=== PATIENT | male | born 1950 | race Caucasian/White ===

== ENCOUNTER 2019-07-10 13:04 | Outpatient (REF) | payer MEDICARE, SELFPAY ==
[2019-07-10 21:08] LABS: Calculated LDL 94 mg/dL; Cholesterol 184 mg/dL (<200); HDL Cholesterol 54 mg/dL (40-60); Triglyceride 183 mg/dL (<150)
== END 2019-07-10 13:24 ==
LOC: NCHCN 13:04
PROVIDERS: PCP Internal Medicine; Visit Provider Internal Medicine
DX: E78.00 Pure hypercholesterolemia, unspecified (principal)
CPT/HCPCS: 80061

== ENCOUNTER 2019-07-17 22:33 | Outpatient (REF) | payer MEDICARE, SELFPAY ==
[2019-07-19 12:00] LABS: IgA 222 mg/dL (85-499); Tissue Transglutaminase IgA <1.2 U/mL (<4.0)
== END 2019-07-17 22:53 ==
LOC: LBN 22:33
PROVIDERS: PCP Internal Medicine; Visit Provider Internal Medicine
DX: K59.00 Constipation, unspecified (principal); R39.9 Unspecified symptoms and signs involving the genitourinary system; E78.5 Hyperlipidemia, unspecified
CPT/HCPCS: 82784; 83516

== ENCOUNTER 2020-01-04 15:14 | Outpatient (REF) | payer MEDICARE, SELFPAY ==
[2020-01-04 21:27] LABS: BUN 17 mg/dL (7-18); CREATININE 1.07 mg/dL (0.70-1.30)
== END 2020-01-04 15:34 ==
LOC: LBN 15:14
PROVIDERS: PCP Internal Medicine; Visit Provider Orthopaedic Surgery Orthopaedic Surgery of the Spine
DX: M48.062 Spinal stenosis, lumbar region with neurogenic claudication (principal)
CPT/HCPCS: 84520; 82565

== ENCOUNTER 2020-01-10 11:02 | Outpatient (REF) | payer MEDICARE, SELFPAY ==
[2020-01-10 21:54] LABS: Calculated LDL 110 mg/dL (<100); Cholesterol 192 mg/dL (<200); HDL Cholesterol 52 mg/dL (40-60); Triglyceride 154 mg/dL (<150)
== END 2020-01-10 11:22 ==
LOC: NCHCN 11:02
PROVIDERS: PCP Internal Medicine; Visit Provider Internal Medicine
DX: E78.5 Hyperlipidemia, unspecified (principal)
CPT/HCPCS: 80061

== ENCOUNTER 2020-10-21 15:14 | Outpatient (REF) | payer MEDICARE, SELFPAY ==
[2020-10-21 13:09] LABS: Abs Immature Grans 0.02 10^3/uL (0.0-0.06); Absolute Basophil Count 0.03 10^3/uL (0.0-0.2); Absolute Eosinophil Count 0.07 10^3/uL (0.0-0.7); Absolute Lymphocyte Count 1.37 10^3/uL (1.2-3.4); Absolute Monocyte Count 0.72 10^3/uL (0.1-0.8); Absolute Neutrophil Count 3.08 10^3/uL (1.2-6.7); Basophils % 0.6; Eosinophils % 1.3; HCT 47.6 % (40.0-50.0); HGB 16.3 g/dL (13.5-17.5); Immature Grans % 0.4; Lymphocytes % 25.9; MCH 31.8 pg (27.0-33.0); MCHC 34.2 % (32.0-36.0); MCV 92.8 fL (80-95); MPV 9.7 fL (8.0-11.0); Monocytes % 13.6; Neutrophils % 58.2; Nucleated RBC 0 %; Platelet Count 231 10^3/uL (130-400); RBC 5.13 10^6/uL (4.36-5.78); RDW 12.1 % (11.8-14.1); RDW-SD 41.6 fL; WBC 5.29 10^3/uL (4.4-10.8)
== END 2020-10-21 15:15 | disposition home or self-care (01) ==
LOC: NCHCN 15:14
PROVIDERS: PCP Internal Medicine; Visit Provider Internal Medicine
DX: Z01.818 Encounter for other preprocedural examination (principal)
CPT/HCPCS: 85025

== ENCOUNTER 2020-11-04 13:21 | Outpatient (REF) | payer MEDICARE, SELFPAY ==
[2020-11-04 22:36] LABS: ALT 44 U/L (16-63); AST 32 U/L (15-37); Alkaline Phosphatase 92 U/L (46-116); Anion Gap 11.2 mmol/L (3-11); Bilirubin, Total 1.2 mg/dL (0.2-1.0); CO2 26.8 mmol/L (21.0-32.0); CREATININE 1.1 mg/dL (0.70-1.30); Calculated LDL 96 mg/dL (<100); Chloride 106 mmol/L (98-107); Cholesterol 188 mg/dL (<200); Glucose 92 mg/dL (74-106); HDL Cholesterol 61 mg/dL (40-60); Potassium 4.4 mmol/L (3.5-5.1); Sodium 144 mmol/L (136-145); Triglyceride 159 mg/dL (<150)
[2020-11-04 22:53] LABS: BUN 23 mg/dL (7-18); Total Protein 6.7 g/dL (6.4-8.2)
== END 2020-11-04 13:22 | disposition home or self-care (01) ==
LOC: NCHCN 13:21
PROVIDERS: PCP Internal Medicine; Visit Provider Internal Medicine
DX: E78.5 Hyperlipidemia, unspecified (principal)
CPT/HCPCS: 80053; 80061

== ENCOUNTER 2022-06-03 15:15 | Outpatient (REF) | payer MEDICARE, OTHER, SELFPAY ==
[2022-06-03 22:54] LABS: PSA, Screening 0.9 ng/mL (<=6.5)
[2022-06-07 11:12] LABS: Testosterone, Free 14.9 ng/dL (3.28-12.2); Testosterone, Total 415 ng/dL (240-950)
== END 2022-06-03 15:16 | disposition home or self-care (01) ==
LOC: NCHCN 15:15
PROVIDERS: PCP Internal Medicine; Visit Provider Internal Medicine
DX: N52.9 Male erectile dysfunction, unspecified (principal); R39.89 Other symptoms and signs involving the genitourinary system; Z12.5 Encounter for screening for malignant neoplasm of prostate
CPT/HCPCS: 84153; 84402; 84403

== ENCOUNTER 2023-05-24 12:55 | Outpatient (REF) | payer MEDICARE, OTHER, SELFPAY ==
[2023-05-24 16:08] LABS: HCT 49.4 % (40.0-50.0); HGB 16.6 g/dL (13.5-17.5); MCH 31.6 pg (27.0-33.0); MCHC 33.6 % (32.0-36.0); MCV 94 fL (80-95); MPV 10.2 fL (8.0-11.0); Platelet Count 230 10^3/uL (130-400); RBC 5.26 10^6/uL (4.36-5.78); RDW 12.4 % (11.8-14.1); RDW-SD 42.9 fL; WBC 5.63 10^3/uL (4.4-10.8)
[2023-05-24 16:18] LABS: ALT 30 U/L (16-63); AST 24 U/L (15-37); Albumin 3.6 g/dL (3.4-5.0); Alkaline Phosphatase 101 U/L (46-116); Anion Gap 6.3 mmol/L (3-11); BUN 14 mg/dL (7-18); Bilirubin, Total 0.8 mg/dL (0.2-1.0); CO2 27.7 mmol/L (21.0-32.0); CREATININE 1.2 mg/dL (0.70-1.30); Calcium 9.2 mg/dL (8.5-10.1); Calculated LDL 125 mg/dL (<100); Chloride 104 mmol/L (98-107); Cholesterol 217 mg/dL (<200); Estimated GFR 64.25 (mL/min/1.73m2); Glucose 95 mg/dL (74-106); HDL Cholesterol 68 mg/dL (40-60); Potassium 4.4 mmol/L (3.5-5.1); Sodium 138 mmol/L (136-145); Total Protein 7.2 g/dL (6.4-8.2); Triglyceride 123 mg/dL (<150)
== END 2023-05-24 12:56 | disposition home or self-care (01) ==
LOC: NCHCN 12:55
PROVIDERS: PCP Internal Medicine; Visit Provider Internal Medicine
DX: E78.5 Hyperlipidemia, unspecified (principal)
CPT/HCPCS: 80053; 80061; 85027

== ENCOUNTER 2023-11-22 14:07 | Outpatient (REF) | payer MEDICARE, OTHER, SELFPAY ==
[2023-11-22 15:23] LABS: Calculated LDL 173 mg/dL (<100); Cholesterol 273 mg/dL (<200); HDL Cholesterol 71 mg/dL (40-60); Triglyceride 148 mg/dL (<150)
== END 2023-11-22 14:08 | disposition home or self-care (01) ==
LOC: NCHCN 14:07
PROVIDERS: PCP Internal Medicine; Visit Provider Internal Medicine
DX: E78.5 Hyperlipidemia, unspecified (principal)
CPT/HCPCS: 80061

== ENCOUNTER 2024-05-26 09:30 | Outpatient (REF) | payer MEDICARE, OTHER, SELFPAY ==
[2024-05-26 14:54] LABS: HCT 48.2 % (40.0-50.0); HGB 16.3 g/dL (13.5-17.5); MCH 32.5 pg (27.0-33.0); MCHC 33.8 % (32.0-36.0); MCV 96 fL (80-95); Platelet Count 205 10^3/uL (130-400); RBC 5.02 10^6/uL (4.36-5.78); RDW 12.3 % (11.8-14.1); RDW-SD 43.9 fL; WBC 4.38 10^3/uL (4.4-10.8)
[2024-05-26 15:09] LABS: ALT 34 U/L (16-63); AST 19 U/L (15-37); Albumin 3.6 g/dL (3.4-5.0); Alkaline Phosphatase 104 U/L (46-116); Anion Gap 6.5 mmol/L (3-11); BUN 17 mg/dL (7-18); Bilirubin, Total 0.43 mg/dL (0.2-1.0); CO2 30.5 mmol/L (21.0-32.0); CREATININE 1.1 mg/dL (0.70-1.30); Calcium 9.3 mg/dL (8.5-10.1); Calculated LDL 176 mg/dL (<100); Chloride 105 mmol/L (98-107); Cholesterol 276 mg/dL (<200); Estimated GFR 70.88 (mL/min/1.73m2); Glucose 91 mg/dL (74-106); HDL Cholesterol 58 mg/dL (40-60); Potassium 4.4 mmol/L (3.5-5.1); Sodium 142 mmol/L (136-145); Total Protein 6.8 g/dL (6.4-8.2); Triglyceride 214 mg/dL (<150)
== END 2024-05-26 09:31 | disposition home or self-care (01) ==
LOC: NCHCN 09:30
PROVIDERS: PCP Internal Medicine; Visit Provider Internal Medicine
DX: E78.5 Hyperlipidemia, unspecified (principal); F10.10 Alcohol abuse, uncomplicated
CPT/HCPCS: 80053; 80061; 85027

== ENCOUNTER 2025-02-05 16:46 | Outpatient (REF) | payer MEDICARE, OTHER, SELFPAY ==
[2025-02-05 16:43] LABS: TSH (W/Ref FT4) 2.25 uIU/mL (0.36-3.74); Vitamin B12 686 pg/mL (193-986)
== END 2025-02-05 16:47 | disposition home or self-care (01) ==
LOC: NCHCN 16:46
PROVIDERS: PCP Internal Medicine; Visit Provider Internal Medicine
DX: R41.89 Other symptoms and signs involving cognitive functions and awareness (principal)
CPT/HCPCS: 82607; 84443

== ENCOUNTER 2025-06-06 12:53 | Outpatient (REF) | payer MEDICARE, OTHER, SELFPAY ==
[2025-06-06 16:27] LABS: HCT 50.8 % (40.0-50.0); HGB 17.1 g/dL (13.5-17.5); MCH 31.5 pg (27.0-33.0); MCHC 33.7 % (32.0-36.0); MCV 94 fL (80-95); MPV 9.7 fL (8.0-11.0); Platelet Count 210 10^3/uL (130-400); RBC 5.42 10^6/uL (4.36-5.78); RDW 13.0 % (11.8-14.1); RDW-SD 44.5 fL; WBC 5.35 10^3/uL (4.4-10.8)
[2025-06-06 16:47] LABS: ALT 25 U/L (10-49); AST 27 U/L (<34); Albumin 4.3 g/dL (3.2-5.0); Alkaline Phosphatase 88 U/L (46-116); Anion Gap 9.5 mmol/L (3-11); BUN 17 mg/dL (9-23); Bilirubin, Total 0.70 mg/dL (0.2-1.2); CO2 28.5 mmol/L (20.0-31.0); Calcium 9.0 mg/dL (8.3-10.6); Chloride 107 mmol/L (98-107); Cholesterol 288 mg/dL (<200); Glucose 94 mg/dL (74-106); HDL Cholesterol 65 mg/dL (>40); Potassium 4.6 mmol/L (3.5-5.1); Sodium 145 mmol/L (136-145); Total Protein 6.7 g/dL (5.7-8.2)
== END 2025-06-06 12:54 | disposition home or self-care (01) ==
LOC: NCHCN 12:53
PROVIDERS: PCP Internal Medicine; Visit Provider Internal Medicine
DX: E78.5 Hyperlipidemia, unspecified (principal)
CPT/HCPCS: 80053; 80061; 85027